=== PATIENT | female | born 1960 | race Caucasian/White ===

== ENCOUNTER → 2017-07-04 | Outpatient (CLI) | payer BC ==
[~2017-07-04] MED LIST: ATOR80; B Complete1 EACH; BENAML10/2 PO; DULO60 PO; ERGO50000; EZET10; EZET10-80 PO; FARXIGA10 MG; IBUP400 PO; LANS30EC PO; LEVSOD125 PO; LIRA0.6P; NEBI5 PO; NYST100P TOP; PROG100 PO; SITA100T2 PO; SPIR50; SPIR50 PO; VALA500 PO
[2017-07-04 09:29] LABS: BASOPHILS ABSOLUTE AUTO 0.02 K/mm3 (0.00-0.23); BASOPHILS PERCENT AUTO 0 % (0-2); EOSINOPHILS ABSOLUTE AUTO 0.06 K/mm3 (0.00-0.68); EOSINOPHILS PERCENT AUTO 1 % (0-6); Hematocrit 44.3 % (33.0-51.0); Hemoglobin 15.9 g/dL (11.5-16.0); IMMATURE GRAN ABSOLUTE AUTO 0.02 K/mm3 (0.00-0.10); IMMATURE GRAN PERCENT AUTO 0 % (0-1); LYMPHOCYTES ABSOLUTE AUTO 0.65 K/mm3 (0.84-5.20); LYMPHOCYTES PERCENT AUTO 10 % (21-46); MONOCYTES ABSOLUTE AUTO 0.15 K/mm3 (0.16-1.47); MONOCYTES PERCENT AUTO 2 % (4-13); Mean Corpuscular HGB Conc 35.9 g/dL (31.5-36.5); Mean Corpuscular Volume 95 fL (80-100); Mean Platelet Volume 12.2 fL (9.1-12.4); NEUTROPHILS PERCENT AUTO 86 % (41-73); Platelet Count 282 K/mm3 (150-400); RDW Coefficient Variation 14.1 % (11.7-14.2); RDW Standard Deviation 48.9 fL (35.1-46.3); Red Blood Cell Count 4.68 M/mm3 (3.80-5.20)
[2017-07-04 09:53] LABS: Alanine Aminotransfer (ALT/SGP 64 U/L (12-78); Albumin/Globulin Ratio 0.8 (0.8-1.8); Alk Phos 156 U/L (50-136); Anion Gap 13 mmol/L (6-16); Aspartate Aminotrans (AST/SGOT 25 U/L (12-37); Bilirubin, Total 0.5 mg/dL (0.1-1.0); Blood Urea Nitrogen 8 mg/dL (8-24); Bun/Creatinine Ratio 16.6 (12.0-20.0); CO2, Blood 25 mmol/L (21-32); Calcium, Blood 10.1 mg/dL (8.5-10.1); Chloride, Blood 98 mmol/L (98-108); Creatinine, Blood 0.48 mg/dL (0.40-1.00); Glomerular Filtration Rate >60 (60-); Glucose, Blood 298 mg/dL (70-99); Potassium, Blood 3.9 mmol/L (3.5-5.5); Sodium, Blood 136 mmol/L (136-145)
== END ==
LOC: LAB EV 08:37 → LAB SHORT 08:37
PROVIDERS: Physician Assistant Medical
DX: R50.9 Fever, unspecified (principal)
CPT/HCPCS: 80053; 85025

== ENCOUNTER 2017-10-01 12:40 | Day surgery (SDC) | payer BC ==
[~2017-10-01] VITALS: Ht 172.7 cm; Wt 120.8 kg
[2017-10-01] MEDS ORDERED: METF500C (13:14)
[2017-10-01] MEDS ORDERED: ASPI81CH (13:14)
[2017-10-01] MEDS ORDERED: VASEPA (13:15)
[2017-10-01] MEDS ORDERED: HYDROCORTISONE1.5 GM (13:16)
[2017-10-01] MEDS ORDERED: PROAIR RESPICL90 MCG (13:16)
== END 2017-10-01 15:03 | disposition home or self-care (01) ==
LOC: ORSCSDS 12:40
PROVIDERS: Internal Medicine Gastroenterology
PROC: 0DBE8ZX Excision of Large Intestine, Via Natural or Artificial Opening Endoscopic, Diagnostic (ICD-10-PCS; principal; 2017-10-01 14:00)
PROC: 0DBP8ZX Excision of Rectum, Via Natural or Artificial Opening Endoscopic, Diagnostic (ICD-10-PCS; principal; 2017-10-01 14:00)
DX: R10.9 Unspecified abdominal pain (principal); K62.1 Rectal polyp; K21.9 Gastro-esophageal reflux disease without esophagitis; G47.30 Sleep apnea, unspecified; I10 Essential (primary) hypertension; E11.9 Type 2 diabetes mellitus without complications; E66.9 Obesity, unspecified; Z68.41 Body mass index [BMI] 40.0-44.9, adult; Z79.82 Long term (current) use of aspirin; Z79.84 Long term (current) use of oral hypoglycemic drugs; Z79.899 Other long term (current) drug therapy
CPT/HCPCS: 82947; 88305; J7120

== ENCOUNTER → 2017-12-12 | Outpatient (CLI) | payer BC ==
[~2017-12-12] MED LIST changes: +ASPI81CH; +HYDROCORTISONE1.5 GM; +METF500C; +PROAIR RESPICL90 MCG; +VASEPA
[2017-12-14 15:07] LABS: HPV 16 Negative (Negative); HPV 18 Negative (Negative); HPV OTHER HR TYPES Negative (Negative)
== END ==
LOC: LAB 14:50 → LAB SHORT 14:50
PROVIDERS: Obstetrics & Gynecology Gynecology
DX: Z12.72 Encounter for screening for malignant neoplasm of vagina (principal); B37.3 Candidiasis of vulva and vagina
CPT/HCPCS: 87070; 87077; 87147; 87186; 87205; 87624; G0123

== ENCOUNTER 2018-04-14 09:31 | Inpatient (IN) | payer BC ==
[~2018-04-14] VITALS: Ht 172.7 cm; Wt 123.9 kg
[~2018-04-14 09:31] MED LIST changes: -ASPI81CH; +ASPI81CH PO; -FARXIGA10 MG; +FARXIGA10 MG PO; -METF500C; +METF500C PO; -SPIR50
[2018-04-14] MEDS ORDERED: INSULANPEN (10:03)
[2018-04-14] MEDS ORDERED: VASCEPA1 GM PO (10:04)
[2018-04-14] MEDS ORDERED: AZIT250 PO (10:04)
[2018-04-14 10:17] LABS: BASOPHILS ABSOLUTE AUTO 0.03 K/mm3 (0.00-0.23); BASOPHILS PERCENT AUTO 0 % (0-2); EOSINOPHILS ABSOLUTE AUTO 0.03 K/mm3 (0.00-0.68); EOSINOPHILS PERCENT AUTO 0 % (0-6); Hematocrit 46.4 % (33.0-51.0); Hemoglobin 15.7 g/dL (11.5-16.0); IMMATURE GRAN ABSOLUTE AUTO 0.04 K/mm3 (0.00-0.10); IMMATURE GRAN PERCENT AUTO 0 % (0-1); LYMPHOCYTES ABSOLUTE AUTO 1.82 K/mm3 (0.84-5.20); LYMPHOCYTES PERCENT AUTO 20 % (21-46); MONOCYTES PERCENT AUTO 8 % (4-13); Mean Corpuscular HGB Conc 33.8 g/dL (31.5-36.5); Mean Corpuscular Volume 92 fL (80-100); Mean Platelet Volume 10.5 fL (9.1-12.4); NEUTROPHILS ABSOLUTE AUTO 6.54 K/mm3 (1.96-9.15); NEUTROPHILS PERCENT AUTO 72 % (41-73); Platelet Count 267 K/mm3 (150-400); RDW Coefficient Variation 14.5 % (11.7-14.2); RDW Standard Deviation 48.9 fL (35.1-46.3); Red Blood Cell Count 5.07 M/mm3 (3.80-5.20); White Blood Cell Count 9.16 K/mm3 (4.00-11.30)
[2018-04-14 11:21] LABS: Albumin, Blood 3.7 g/dL (3.4-5.0); Albumin/Globulin Ratio 0.9 (0.8-1.8); Alk Phos 116 U/L (50-136); Anion Gap 8 mmol/L (6-16); Aspartate Aminotrans (AST/SGOT 52 U/L (12-37); Bilirubin, Total 0.4 mg/dL (0.1-1.0); Blood Urea Nitrogen 8 mg/dL (8-24); Bun/Creatinine Ratio 15.3 (12.0-20.0); CO2, Blood 24 mmol/L (21-32); Calcium, Blood 8.6 mg/dL (8.5-10.1); Chloride, Blood 102 mmol/L (98-108); Creatinine, Blood 0.52 mg/dL (0.40-1.00); Globulin, Blood 3.9 g/dL (2.2-4.0); Glomerular Filtration Rate >60 (60-); Glucose, Blood 160 mg/dL (70-99); Potassium, Blood 4.4 mmol/L (3.5-5.5); Sodium, Blood 134 mmol/L (136-145); Total Protein, Blood 7.6 g/dL (6.4-8.2)
[2018-04-14 11:29] LABS: Influenza A Negative (NEGATIVE); Influenza B Negative (NEGATIVE)
[2018-04-14 11:33] LABS: Alanine Aminotransfer (ALT/SGP 87 U/L (12-78)
--- NOTE | 2018-04-14 15:52 | NUR ---
PATIENT ARRIVED TO THE UNIT VIA W/C. VOICE QUIET AND RASPY, STATES VERY PAINFUL TO TALK. ABLE TO ANSWER ALL QUESTIONS ASKED OF HER. FAMILY AT BEDSIDE.
[2018-04-14] MEDS ORDERED: Azor 10-40 MG1 EACH PO (16:31)
[2018-04-14] MEDS ORDERED: TRULICITY1.5 MG/0.5 SC (16:38)
[2018-04-14] MEDS ORDERED: CHOL10002 PO (16:38)
[2018-04-15 01:12] LABS: Adenovirus Not Detected (NOT DETECT); Coronavirus 229E Not Detected (NOT DETECT); Coronavirus HKU1 Not Detected (NOT DETECT); Coronavirus NL63 Not Detected (NOT DETECT); Coronavirus OC43 Not Detected (NOT DETECT); Human Metapneumovirus Not Detected (NOT DETECT); Human Rhinovirus/Enterovirus Not Detected (NOT DETECT)
[2018-04-15 01:13] LABS: Bordetella pertussis Not Detected (NOT DETECT); Chlamydophila pneumoniae Not Detected (NOT DETECT); Influenza A/2009-H1 Not Detected (NOT DETECT); Influenza A/H1 Not Detected (NOT DETECT); Influenza A/H3 Not Detected (NOT DETECT); Influenza B Not Detected (NOT DETECT); Mycoplasma pneumoniae Not Detected (NOT DETECT); Parainfluenza Virus 1 Not Detected (NOT DETECT); Parainfluenza Virus 3 Not Detected (NOT DETECT); Parainfluenza Virus 4 Not Detected (NOT DETECT); Respiratory Syncytial Virus Not Detected (NOT DETECT)
[2018-04-15 02:25] LABS: Influenza A Not Detected (NOT DETECT); Parainfluenza Virus 2 Detected (NOT DETECT)
--- NOTE | 2018-04-15 04:36 | NUR ---
EQUITY RESEARCH ANALYST SUMMARY PT AAOX4 AND INDEPENDENT IN THE ROOM. REMAINS ON 3L O2 VIA NC, COARSE LUNG SOUNDS. PT'S MAIN COMPLAINT IS THROAT PAIN FROM THRUSH. ALTERNATING MAGIC MOUTH WASH AND MYCELEX TROCHES HELPED PAIN ENOUGH TO ALLOW PT TO SWALLOW TYLENOL. AFTER PT RECIEVED TYLENOL SHE WAS ABLE TO REST. HR TACHY IN LOW 100'S AT START OF SHIFT BUT TRENDED DOWN TO 70-80'S WHEN PT WAS ABLE TO REST. STARTED ON LR'S AT 100 ML/HR. VSS, WILL CONTINUE TO MONITOR.
[2018-04-15 05:03] LABS: BASOPHILS ABSOLUTE AUTO 0.01 K/mm3 (0.00-0.23); BASOPHILS PERCENT AUTO 0 % (0-2); EOSINOPHILS PERCENT AUTO 0 % (0-6); Hematocrit 40.2 % (33.0-51.0); Hemoglobin 13.4 g/dL (11.5-16.0); IMMATURE GRAN ABSOLUTE AUTO 0.03 K/mm3 (0.00-0.10); IMMATURE GRAN PERCENT AUTO 0 % (0-1); LYMPHOCYTES ABSOLUTE AUTO 1.44 K/mm3 (0.84-5.20); LYMPHOCYTES PERCENT AUTO 19 % (21-46); MONOCYTES ABSOLUTE AUTO 0.51 K/mm3 (0.16-1.47); MONOCYTES PERCENT AUTO 7 % (4-13); Mean Corpuscular HGB 30.6 pg (26.0-34.0); Mean Corpuscular HGB Conc 33.3 g/dL (31.5-36.5); Mean Corpuscular Volume 92 fL (80-100); Mean Platelet Volume 10.5 fL (9.1-12.4); NEUTROPHILS ABSOLUTE AUTO 5.64 K/mm3 (1.96-9.15); NEUTROPHILS PERCENT AUTO 74 % (41-73); Platelet Count 233 K/mm3 (150-400); RDW Coefficient Variation 14.7 % (11.7-14.2); RDW Standard Deviation 49.3 fL (35.1-46.3); Red Blood Cell Count 4.38 M/mm3 (3.80-5.20); White Blood Cell Count 7.63 K/mm3 (4.00-11.30)
[2018-04-15 05:30] LABS: Magnesium, Blood 1.8 mg/dL (1.6-2.4)
[2018-04-15 05:33] LABS: Alanine Aminotransfer (ALT/SGP 54 U/L (12-78); Albumin, Blood 3.5 g/dL (3.4-5.0); Albumin/Globulin Ratio 0.9 (0.8-1.8); Alk Phos 90 U/L (50-136); Anion Gap 8 mmol/L (6-16); Aspartate Aminotrans (AST/SGOT 29 U/L (12-37); Bilirubin, Total 0.7 mg/dL (0.1-1.0); Blood Urea Nitrogen 9 mg/dL (8-24); Bun/Creatinine Ratio 16.4 (12.0-20.0); CO2, Blood 27 mmol/L (21-32); Calcium, Blood 9.5 mg/dL (8.5-10.1); Chloride, Blood 103 mmol/L (98-108); Creatinine, Blood 0.55 mg/dL (0.40-1.00); Glomerular Filtration Rate >60 (60-); Glucose, Blood 177 mg/dL (70-99); Potassium, Blood 4.2 mmol/L (3.5-5.5); Sodium, Blood 138 mmol/L (136-145); Total Protein, Blood 7.5 g/dL (6.4-8.2)
--- NOTE | 2018-04-15 16:50 | NUR ---
SHIFT SUMMARY NO CHANGES IN ASSESSMENT AT THIS TIME. PT STATED THAT LIQUID TYLENOL WAS MUCH LESS PAINFUL TO SWALLOW THAN THE TABLET. VSS. PT HAS BEEN IND IN ROOM. NO OTHER COMPLAINTS AT THIS TIME. WILL CONTINUE TO MONITOR UNTIL TURNOVER IS COMPLETE.
--- NOTE | 2018-04-16 04:28 | NUR ---
CORE MAKER HELPER SUMMARY NO ACUTE CHANGES THIS SHIFT. PT AAOX4 AND INDEPENDENT IN HER ROOM. PT THROAT LESS PAINFUL TONIGHT. PT STATES MAGIC MOUTHWASH "SEEMS TO BE HELPING QUITE A BIT". ABLE TO TAKE IN A BIT MORE PO INTAKE BUT STILL REFUSES MOST PO PILLS, ESPECIALLY IF THEY'RE LARGE. TYLENOL ELIXER WORKS WELL FOR PAIN RELIEF, ALLOWING PT TO SLEEP THROUGH THE NIGHT. TELEMETRY HAS SHOWN NSR IN THE 70'S THROUGH THE NIGHT. VSS, WILL CONTINUE TO MONITOR.
--- NOTE | 2018-04-16 16:36 | NUR ---
SHE HAS SOME COARSE WHEEZY LUNG SOUNDS. SAYS THEY SOUND BETTER TODAY. SHE FEELS BETTER TODAY THAN PREVIOUS DAYS. THE PLAN IS TO DISCHARGE TOMORROW. HE FELT SHE STILL NEEDED IV ANTIBIOTIC SO HER SALINE LOCK WAS RESTARTED THIS AFTERNOON. TELE DC'D. SHE ALSO SAYS HER THRUSH IS IMPROVING. SHE HASN'T BEEN EATING SOLID FOOD THOUGH, JUST SOUPS AND PUDDINGS. SHE C/O HEARTBURN TODAY BUT HAD BEEN REFUSING HER PROTONIX BECAUSE SHE WAS AFRAID TO SWALLOW IT. SHE DID TAKE A DOSE TODAY THOUGH, ALL HER MEDS IN APPLESAUCE, MOST CRUSHED OR OPENED IF ALLOWED.
--- NOTE | 2018-04-16 18:20 | NUR ---
SHE HAD SOUP AND ICE CREAM FOR DINNER. SHE SAYS THE MAGIC MOUTHWASH IS REALLY HELPING HER A LOT. SHE ALSO GETS IV DIFLUCAN. WILL RESUME HER LR IV AFTER ANTIBIOTICS ARE FINISHED.
--- NOTE | 2018-04-17 07:22 | NUR ---
a+o, room air, saline locked, no s/sx of infection at site, call light in reach, able to make needs known, able to self transfer to bathroom, walking rounds completed with day staff
[2018-04-17] MEDS ORDERED: LEVFLO500 PO (13:57)
[2018-04-17] MEDS ORDERED: FLUC150A PO (13:57)
--- NOTE | 2018-04-17 14:39 | NUR ---
PATIENT DISCHARGED WITH SON. GIVEN INSTRUCTIONS ON USE OF MAGIC MOUTH WASH. MEDS FAXED TO [facility]. THIS RN ESCORTED PATIEN TO THEIR VEHICLE VIA W/C. EASILY TRANSFERRED INTO CAR.
== END 2018-04-17 14:21 | disposition home or self-care (01) | DRG 193 ==
LOC: ER 09:31 → MEDS 13:49
PROVIDERS: Emergency Medicine; Internal Medicine; ADMIT Hospitalist
DX: J18.1 Lobar pneumonia, unspecified organism (principal); J96.01 Acute respiratory failure with hypoxia; Z68.41 Body mass index [BMI] 40.0-44.9, adult; B37.0 Candidal stomatitis; E11.40 Type 2 diabetes mellitus with diabetic neuropathy, unspecified; R13.10 Dysphagia, unspecified; E66.01 Morbid (severe) obesity due to excess calories; K75.81 Nonalcoholic steatohepatitis (NASH); E78.5 Hyperlipidemia, unspecified; I10 Essential (primary) hypertension; E21.1 Secondary hyperparathyroidism, not elsewhere classified; E78.1 Pure hyperglyceridemia; F32.9 Major depressive disorder, single episode, unspecified; G47.33 Obstructive sleep apnea (adult) (pediatric); J32.0 Chronic maxillary sinusitis; Z91.19 Patient's noncompliance with other medical treatment and regimen; Z98.890 Other specified postprocedural states; Z79.899 Other long term (current) drug therapy; Z79.4 Long term (current) use of insulin; Z79.82 Long term (current) use of aspirin; Z88.8 Allergy status to other drugs, medicaments and biological substances
CPT/HCPCS: 36415; 71046; 80053; 82947; 83605; 83735; 84100; 84145; 85025; 87040; 87070; 87205; 87486; 87581; 87633; 87798; 87804; 90686; 93005; 93010; 94640; 94644; 94760; 96365; 96367; 96375; 96376; 99285-25; J0456; J0696; J1450; J1956; J2405; J2930; J3010; J7050; J7120

== ENCOUNTER → 2018-09-30 | Outpatient (CLI) | payer BC ==
[~2018-09-30] MED LIST changes: +AZIT250 PO; +Azor 10-40 MG1 EACH PO; +CHOL10002 PO; +FLUC150A PO; +INSULANPEN; +LEVFLO500 PO; +TRULICITY1.5 MG/0.5 SC; +VASCEPA1 GM PO
== END ==
LOC: LAB 13:00 → LAB SHORT 13:00
DX: N89.8 Other specified noninflammatory disorders of vagina (principal)
CPT/HCPCS: 87070; 87205

== ENCOUNTER → 2018-11-29 | Outpatient (CLI) | payer BC | END | disposition home or self-care (01) | LOC: LAB SHORT 13:38 → PLD 13:38 | DX: N95.0 Postmenopausal bleeding (principal) | CPT/HCPCS: 88305 ==

== ENCOUNTER → 2018-12-27 | Outpatient (CLI) | payer BC ==
[2018-12-27 18:10] LABS: White Blood Cells, Urine TNTC /hpf (0-5)
[2018-12-27 18:11] LABS: Bacteria Many /hpf; Squamous Epithelial Cells Few /hpf (Few)
[2018-12-28 16:29] LABS: Candida species (DNA Probe) Negative (NEGATIVE); G. vaginalis (DNA Probe) Negative (NEGATIVE); T. vaginalis (DNA Probe) Negative (NEGATIVE)
== END | disposition home or self-care (01) ==
LOC: LAB UCHC 10:30 → LAB SHORT 10:30
PROVIDERS: Internal Medicine
DX: R30.0 Dysuria (principal)
CPT/HCPCS: 81015; 87086; 87186; 87480; 87510; 87660

== ENCOUNTER → 2019-01-14 | Outpatient (CLI) | payer BC | END | disposition home or self-care (01) | LOC: LAB SHORT 07:00 → OLS 07:00 → LAB FUT 01-14 16:40 | DX: R12 Heartburn (principal) | CPT/HCPCS: 87338 ==

== ENCOUNTER 2019-08-20 13:13 | Day surgery (SDC) | payer BC | END 2019-08-20 22:47 | disposition home or self-care (01) | LOC: MOI RAD 13:13 → MOI MRI 15:00 → MOI RAD 22:47 | DX: M24.852 Other specific joint derangements of left hip, not elsewhere classified (principal) | CPT/HCPCS: 20610; 73722; 77002; A9577; Q9967 ==

== ENCOUNTER → 2021-02-09 | Outpatient (CLI) | payer BC | LOC: LAB 11:48 → LAB SHORT 11:48 | DX: D48.5 Neoplasm of uncertain behavior of skin (principal); L85.9 Epidermal thickening, unspecified; D23.71 Other benign neoplasm of skin of right lower limb, including hip; Z88.8 Allergy status to other drugs, medicaments and biological substances; Z91.048 Other nonmedicinal substance allergy status | CPT/HCPCS: 88305 ==

== ENCOUNTER → 2021-03-11 | Outpatient (CLI) | payer BC ==
[2021-03-11 10:31] LABS: Alanine Aminotransfer (ALT/SGP 119 U/L (12-78); Albumin, Blood 3.7 g/dL (3.4-5.0); Albumin/Globulin Ratio 1.1 (0.8-1.8); Alk Phos 94 U/L (50-136); Anion Gap 3 mmol/L (6-16); Aspartate Aminotrans (AST/SGOT 69 U/L (12-37); Bilirubin, Total 0.4 mg/dL (0.1-1.0); Blood Urea Nitrogen 15 mg/dL (8-24); CHOL/HDL RATIO 3.8; CO2, Blood 31 mmol/L (21-32); Calcium, Blood 10.3 mg/dL (8.5-10.1); Chloride, Blood 106 mmol/L (98-108); Cholesterol 173 mg/dL (50-200); Creatinine, Blood 0.65 mg/dL (0.40-1.00); Globulin, Blood 3.3 g/dL (2.2-4.0); Glomerular Filtration Rate >60 (60-); Glucose, Blood 176 mg/dL (70-99); HDL Cholesterol 45 mg/dL (>39); LDL/HDL RATIO 1.8; Low Density Lipoprotein Chol 81 mg/dL (0-110); Potassium, Blood 4.5 mmol/L (3.5-5.5); Sodium, Blood 140 mmol/L (136-145); Triglycerides 233 mg/dL (30-160); Very Low Density Lipoprot Chol 46 mg/dL (6-32)
== END | disposition home or self-care (01) ==
LOC: LAB 08:15 → LAB SHORT 08:15
PROVIDERS: Internal Medicine
DX: E78.2 Mixed hyperlipidemia (principal)
CPT/HCPCS: 80053; 80061; 83036

== ENCOUNTER → 2021-03-11 | Outpatient (CLI) | payer BC | END | disposition home or self-care (01) | LOC: LAB 17:14 → LAB SHORT 17:14 → LAB FUT 03-11 08:40 | DX: N39.0 Urinary tract infection, site not specified (principal) | CPT/HCPCS: 87077; 87086; 87186 ==

== ENCOUNTER → 2022-02-15 | Outpatient (CLI) | payer BC ==
[~2022-02-15] MED LIST changes: +ACET325 PO; +BASAGLAR K100 UNIT/3 SC; +CELE200 PO; +CLOP75 PO; +Crestor40 MG; +DULO30 PO; +EUTHYROX175 MCG PO; +IBUP800 PO; +Imdur-ER60 MG PO; +NASACORT10.8 ML; +OZEMPIC1 MG/0.72 SC; +PANT40 PO; +PREG50 PO; +REPA2; +VOLTAREN ARTHRI20 GM TD; +Ventolin/Prove6.7 GM INH
[2022-02-16 14:11] LABS: HPV 16 Negative (Negative); HPV 18 Negative (Negative); HPV OTHER HR TYPES Negative (Negative)
== END | disposition home or self-care (01) ==
LOC: LAB SHORT 10:05 → RAD SHORT 10:05 → LAB 10:05
PROVIDERS: Obstetrics & Gynecology
DX: Z01.419 Encounter for gynecological examination (general) (routine) without abnormal findings (principal)
CPT/HCPCS: 87624; G0123

== ENCOUNTER → 2023-05-11 | Outpatient (CLI) | payer BC | LOC: LAB SHORT 14:03 → LAB 14:03 | DX: N30.00 Acute cystitis without hematuria (principal) | CPT/HCPCS: 87086; 87147 ==

== ENCOUNTER 2024-11-25 10:53 | Day surgery (SDC) | payer BC ==
[~2024-11-25] VITALS: Ht 172.7 cm; Wt 112.2 kg
[~2024-11-25 10:53] MED LIST changes: +Balanced Salt Epinephrine Irrigation Solution 500 mL IR SCH; +Moxifloxacin HCL 0.5 MG/0.1 ML 0.4MLSYR RIGHTEYE SCH; +PHENYLEPHRINE\\TROPICAMIDE\\TETRACAINE OPHTHALMIC DILATING SOLN RIGHTEYE PRN; +Povidone-Iodine 450 DROP/30 ML Solution ONE; +Povidone-Iodine 450 DROP/30 ML Solution RIGHTEYE SCH; +Tetracaine HCl/Pf 0.5% Opth Soln 4 ml ONE
[2024-11-25] MEDS ORDERED: MOUNJARO15 MG/0.5 SC (11:33)
[2024-11-25] MEDS ORDERED: NS 500 ML IV ONE (11:37)
[2024-11-25] MEDS ORDERED: Midazolam HCl 1MG / ML 2ML Vial ONE ×2 (11:59→12:06)
[2024-11-25] MEDS ORDERED: Tetracaine HCl 0.5% Opth Soln 15 ml RIGHTEYE ONE (11:59)
[2024-11-25 12:29] VITALS: BP 124/65
== END 2024-11-25 12:44 | disposition home or self-care (01) ==
LOC: ORSCSDS 10:53
PROVIDERS: Student in an Organized Health Care Education/Training Program
PROC: 08RJ3JZ Replacement of Right Lens with Synthetic Substitute, Percutaneous Approach (ICD-10-PCS; principal; 2024-11-25 12:30)
DX: E11.36 Type 2 diabetes mellitus with diabetic cataract (principal); H25.813 Combined forms of age-related cataract, bilateral; H52.201 Unspecified astigmatism, right eye; I10 Essential (primary) hypertension; G47.33 Obstructive sleep apnea (adult) (pediatric); I25.10 Atherosclerotic heart disease of native coronary artery without angina pectoris; Z79.82 Long term (current) use of aspirin; Z79.84 Long term (current) use of oral hypoglycemic drugs; Z79.85 Long-term (current) use of injectable non-insulin antidiabetic drugs; Z79.899 Other long term (current) drug therapy
CPT/HCPCS: 82947; J2250; V2632

== ENCOUNTER 2024-12-09 09:07 | Day surgery (SDC) | payer BC ==
[~2024-12-09] VITALS: Ht 172.7 cm; Wt 112.3 kg
[~2024-12-09 09:07] MED LIST changes: +MOUNJARO15 MG/0.5 SC; +Moxifloxacin HCL 0.5 MG/0.1 ML 0.4MLSYR LEFTEYE SCH; -Moxifloxacin HCL 0.5 MG/0.1 ML 0.4MLSYR RIGHTEYE SCH; +NS 500 ML IV ONE; +PHENYLEPHRINE\\TROPICAMIDE\\TETRACAINE OPHTHALMIC DILATING SOLN LEFTEYE PRN; -PHENYLEPHRINE\\TROPICAMIDE\\TETRACAINE OPHTHALMIC DILATING SOLN RIGHTEYE PRN; +Povidone-Iodine 450 DROP/30 ML Solution LEFTEYE SCH; -Povidone-Iodine 450 DROP/30 ML Solution RIGHTEYE SCH
[2024-12-09] MEDS ORDERED: NEBI10 PO (09:45)
--- NOTE | 2024-12-09 09:54 | NUR ---
12/09/24 0954 Nidia Sims TETRACAINE IN AT 0945 PLEDGETT IN AT 0946 PT TOLERATED WELL. CALL LIGHT IN REACH.
[2024-12-09] MEDS ORDERED: NS 500 ML IV ONE (10:15)
[2024-12-09] MEDS ORDERED: Midazolam HCl 1MG / ML 2ML Vial ONE ×2 (10:42→10:45)
[2024-12-09 11:09] VITALS: BP 149/79
== END 2024-12-09 11:31 | disposition home or self-care (01) ==
LOC: ORSCSDS 09:07
PROVIDERS: Student in an Organized Health Care Education/Training Program
PROC: 08RK3JZ Replacement of Left Lens with Synthetic Substitute, Percutaneous Approach (ICD-10-PCS; principal; 2024-12-09 11:00)
DX: E11.36 Type 2 diabetes mellitus with diabetic cataract (principal); H25.812 Combined forms of age-related cataract, left eye; H52.202 Unspecified astigmatism, left eye; Z96.1 Presence of intraocular lens; I10 Essential (primary) hypertension; I25.10 Atherosclerotic heart disease of native coronary artery without angina pectoris; Z95.1 Presence of aortocoronary bypass graft; E07.9 Disorder of thyroid, unspecified; Z79.82 Long term (current) use of aspirin; Z79.84 Long term (current) use of oral hypoglycemic drugs; Z79.85 Long-term (current) use of injectable non-insulin antidiabetic drugs; Z79.899 Other long term (current) drug therapy
CPT/HCPCS: 82947; J2250; J7040; V2632